=== PATIENT | male | born 1990 | race Caucasian/White ===

== ENCOUNTER 2016-11-10 22:32 | Emergency (ER) | payer SELFPAY ==
--- NOTE | ~2016-11-10 | ER ---
PATIENT'S NAME: [facility] AGE: 26 Y [address] ROOM: [place] [id number] LOCATION: [facility] ADMIT DATE: 11/10/2016 ER/Outpatient Report DISCHARGE DATE: 11/10/2016 FAMILY PHYSICIAN: Khari Walter MD ATTENDING PHYSICIAN: Keon Houston Time of Arrival: 2231 hours. Time OF Evaluation: 2245 hours. CHIEF COMPLAINT: Burning with urination. HISTORY OF PRESENT ILLNESS: The patient states on 11/08/2016, he began having some burning with urination, has gotten worse in the past 24 hours. He feels as though it may be cloudy in appearance, also felt as though he has some cloudy discharge. Denies any nausea or vomiting. Has not had fever or chills. Has never had symptoms like this before. ALLERGIES: CECLOR. CURRENT MEDICATIONS: On his chart and reviewed by me. PAST MEDICAL HISTORY: Asthma. PAST SURGERIES: Ear tubes. SOCIAL HISTORY: Denies use of tobacco or drugs. Only drinks alcohol on an occasional basis. REVIEW OF SYSTEMS: All negative other than those mentioned in the HPI. He states he is 5 feet 9 inches. PHYSICAL EXAMINATION: VITAL SIGNS: He weighed 90.8 kg. Blood pressure is 130/77, pulse of 115, respirations 16, temperature of 98, O2 saturation is 97% on room air. GENERAL: He is awake, alert, and oriented x4. SKIN: [place], warm, and dry. RESPIRATIONS: Even and nonlabored. Lung sounds are clear throughout. HEART: Regular rate and rhythm. PATIENT'S NAME: DL SHAHIC Stefanie [facility] AGE: 26 Y [address] ROOM: [place], [place] [address] LOCATION: [facility] ADMIT DATE: 11/10/2016 ER/Outpatient Report DISCHARGE DATE: 11/10/2016 FAMILY PHYSICIAN: Khari Walter MD ATTENDING PHYSICIAN: Keon Houston ABDOMEN: He does have some just generalized lower abdominal pain. Has strong bowel sounds in all 4 quadrants. He is positive for left CVA tenderness. LABORATORY DATA AND X-RAY: Clean-catch UA was obtained. He denies the use of any dzyw-qud-wzrsyam medicine, but the urine is orange in color as we expect with use the of azo. Leukocytes were negative, but nitrite was positive. White cells were 0-2, bacteria was rare. Chlamydia and gonorrhea results are not available at this time. IMPRESSION: Urinary tract infection. PLAN: We will allow the patient to go home. Rest. Fluids. Prescription was written for Bactrim DS b.i.d. x5 days. We will call him with the chlamydia results if they are positive and discuss antibiotic needs at that time. The patient verbalized understanding. AI GONZALES APRN FOR MD ROBINA DOYLE/yoana /[id number] d: 11/11/16 0245 t: 11/12/16 1212, OUTPATIENT REPORT
[2016-11-10 22:52] LABS: BLOOD URINE NEGATIVE /UL (NEGATIVE); GLUCOSE URINE NEGATIVE (NEGATIVE); KETONE URINE NEGATIVE (NEGATIVE); LEUKOCYTES URINE NEGATIVE /UL (NEGATIVE); NITRITE URINE POSITIVE (NEGATIVE); PROTEIN URINE NEGATIVE (NEGATIVE); UROBILINOGEN URINE 4 mg/dL (NORMAL)
[2016-11-10 22:58] LABS: COLOR URINE ORANGE (YELLOW); TURBIDITY URINE CLEAR (CLEAR)
[2016-11-10 23:22] LABS: BACTERIA URINE NEGATIVE (NEGATIVE); EPITHELIAL URINE 0-2 #/HPF (NEGATIVE); RBC URINE RARE #/HPF (NEGATIVE); WBC URINE 0-2 #/HPF (NEGATIVE)
== END 2016-11-10 23:31 | disposition disaster alternative care site (69) ==
LOC: GMED 22:32
PROVIDERS: Emergency Medicine
DX: N39.0 Urinary tract infection, site not specified (principal); Z88.8 Allergy status to other drugs, medicaments and biological substances

== ENCOUNTER → 2017-03-04 | Emergency (ER) | payer SELFPAY | END | disposition disaster alternative care site (69) | LOC: GAMB 17:27 | DX: S80.212A Abrasion, left knee, initial encounter (principal); S91.119A Laceration without foreign body of unspecified toe without damage to nail, initial encounter; R58 Hemorrhage, not elsewhere classified; V19.9XXA Pedal cyclist (driver) (passenger) injured in unspecified traffic accident, initial encounter ==